=== PATIENT | female | born 1980 | race Two or more races ===

== ENCOUNTER 2024-10-20 08:15 | Inpatient (IN) | payer OTHER ==
[~2024-10-20] VITALS: Ht 157.5 cm; Wt 72.1 kg
[2024-10-20 10:35] VITALS: BP 141/80
[2024-10-20 10:38] VITALS: BP 138/88
[2024-10-20 10:49] LABS: HEMATOCRIT 40.7 % (36.0-45.00); MEAN CELL VOLUME 103.4 fL (80.00-100.00); MEAN CORPUSCULAR HEMOGLOBIN 35.5 pg (27.00-32.0); MEAN CORPUSCULAR HGB CONC 34.3 g/dl (32.0-36.0); PLATELET COUNT 265 K/uL (150-450); RED BLOOD COUNT 3.94 M/uL (4.00-6.00); RED CELL DISTRIBUTION WIDTH 12.8 % (11.5-14.5)
[2024-10-20 11:25] LABS: INR 1.1; PARTIAL THROMBOPLASTIN TIME 30.2 SECONDS (22.0-34.0); PROTHROMBIN TIME 11.9 SECONDS (9.0-11.5)
[2024-10-20 11:29] LABS: ALBUMIN 3.8 gm/dL (3.4-5.0); BILIRUBIN TOTAL 0.48 mg/dL (0.3-1.2); CALCIUM 9.4 mg/dL (8.5-10.1); CREATININE SERUM 0.78 mg/dL (0.55-1.02); GFR 80.61; GLOBULINA 3.9 G/DL (2.4-3.5); POTASSIUM 4.53 mEq/L (3.5-5.1); TOTAL PROTEIN 7.7 gm/dL (6.4-8.2)
[2024-10-20 11:53] LABS: URINE APPEARANCE Clear; URINE BILIRRUBIN Negative (NEGATIVE); URINE BLOOD Moderate; URINE COLOR Yellow; URINE GLUCOSE Negative (NEGATIVE); URINE KETONE Negative (NEGATIVE); URINE LEUKOCYTE Negative; URINE NITRATE Negative; URINE PROTEIN Negative (NEGATIVE)
[2024-10-20 11:57] LABS: URINE EPITHELIAL CELLS 3.6 uL (0.0-38.8); URINE RBC 40.6 uL (0.0-20.8); URINE WBC 3.7 uL (0.0-23.2)
[2024-10-20 12:06] LABS: URINE BACTERIA 2.4 uL (0.0-1933)
[2024-10-25] MEDS ORDERED: CEFOXITIN SODIUM 2,000 MG VIAL IV ONE (14:08)
[2024-10-25] MEDS ORDERED: SUGAMMADEX SODIUM 200 MG/2 ML VIAL IV ONE (18:00)
[2024-10-25] MEDS ORDERED: ONDANSETRON HCL 2 MG/ML VIAL ONE (18:08)
[2024-10-25] MEDS ORDERED: ONDANSETRON HCL 2 MG/ML VIAL IV ONE (18:10)
[2024-10-25] MEDS ORDERED: MORPHINE SULFATE 4 MG/ML VIAL IV ONE ×2 (18:15→18:45)
[2024-10-25] MEDS ORDERED: KETOROLAC TROMETHAMINE 60 MG VIAL IM STA (19:40)
[2024-10-25] MEDS ORDERED: RINGERS SOLUTION,LACTATED 1,000 ML IV SCH (19:45)
[2024-10-25] MEDS ORDERED: MORPHINE SULFATE 4 MG/ML CARTRIDGE IV PRN (19:45)
[2024-10-25] MEDS ORDERED: ACETAMINOPHEN WITH CODEINE 1 UDTAB TABLET PO PRN (19:45)
[2024-10-25] MEDS ORDERED: KETOROLAC TROMETHAMINE 30 MG VIAL ONE (20:43)
[2024-10-25] MEDS ORDERED: KETOROLAC TROMETHAMINE 60 MG VIAL IM ONE (20:45)
[2024-10-25 21:33] LABS: HEMATOCRIT 41.2 % (36.0-45.00); MEAN CELL VOLUME 102.7 fL (80.00-100.00); MEAN CORPUSCULAR HEMOGLOBIN 34.8 pg (27.00-32.0); MEAN CORPUSCULAR HGB CONC 33.9 g/dl (32.0-36.0); PLATELET COUNT 250 K/uL (150-450); RED BLOOD COUNT 4.02 M/uL (4.00-6.00); RED CELL DISTRIBUTION WIDTH 12.7 % (11.5-14.5)
[2024-10-25 21:56] VITALS: BP 141/80
[2024-10-26 00:23] VITALS: BP 106/71
[2024-10-26] MEDS ORDERED: CEFOXITIN SODIUM 2,000 MG VIAL IV SCH (01:00)
[2024-10-26 05:00] VITALS: BP 107/68
[2024-10-26 08:26] VITALS: BP 116/62
[2024-10-26 16:39] VITALS: BP 122/82
[2024-10-27] VITALS: BP 110/73
[2024-10-27 08:27] VITALS: BP 114/77
[2024-10-27 17:16] VITALS: BP 110/77
[2024-10-27 20:33] VITALS: BP 123/78
[2024-10-28] VITALS: BP 112/71
== END 2024-10-28 11:05 | disposition home or self-care (01) | DRG 743 ==
LOC: OB/GYN 10-25 07:00 → O/R 10-25 11:10 → OB/GYN 10-25 21:18
PROVIDERS: ADMIT Obstetrics & Gynecology; ATTEND Obstetrics & Gynecology
PROC: 0UT70ZZ Resection of Bilateral Fallopian Tubes, Open Approach (ICD-10-PCS; 2024-10-25)
PROC: 0UT90ZZ Resection of Uterus, Open Approach (ICD-10-PCS; principal; 2024-10-25 07:00)
DX: D25.1 Intramural leiomyoma of uterus (principal); D25.2 Subserosal leiomyoma of uterus; N80.03 Adenomyosis of the uterus; N72 Inflammatory disease of cervix uteri